=== PATIENT | female | born 1955 | race Caucasian/White ===

== ENCOUNTER → 2018-08-16 | Outpatient (CLI) | payer OTHER ==
[2018-08-16 11:40] LABS: BLOOD UREA NITROGEN 10 mg/dl (7-20); CALCIUM 9.6 mg/dl (8.4-10.2); CARBON DIOXIDE 30 mmol/L (21-31); CHLORIDE 102 mmol/L (97-110); CREATININE 0.88 mg/dl (0.44-1.00); GLUCOSE 173 mg/dl (70-220); POTASSIUM 4.8 mmol/L (3.5-5.1); SODIUM 140 mmol/L (135-144)
[2018-08-17 09:07] LABS: ANION GAP 6 (8-16)
== END | disposition home or self-care (01) ==
LOC: LAB 10:36
DX: R07.9 Chest pain, unspecified (principal)
CPT/HCPCS: 80048

== ENCOUNTER → 2018-08-23 | Outpatient (CLI) | payer OTHER ==
[2018-08-23] MEDS: SOD CHLORIDE 0.9% 100 ML (11:47)
[2018-08-23] MEDS: IODIXANOL LOCM 100 ML BTL (11:48)
[2018-08-23] MEDS: NITROGLYCERIN AEROSOL (4.9 GM) (11:57)
== END | disposition home or self-care (01) ==
LOC: C/S 09:18
DX: R07.9 Chest pain, unspecified (principal)
CPT/HCPCS: 75571; 75574